=== PATIENT | female | born 1965 | race Caucasian/White ===

== ENCOUNTER 2016-08-18 21:35 | Emergency (ER) | payer OTHER ==
[~2016-08-18] VITALS: Ht 157.5 cm; Wt 59.9 kg
[2016-08-18 21:38] VITALS: Ht 157.5 cm; Wt 59.9 kg
[2016-08-18] MEDS ORDERED: LABETALOL HCL 20MG INJ IV ONE (23:30)
[2016-08-18] MEDS ORDERED: ASPI81TA3 PO (23:33)
[2016-08-18] MEDS ORDERED: LOSA1TAB21 PO (23:33)
[2016-08-18] MEDS ORDERED: IBUP200C11 PO (23:34)
[2016-08-19 00:13] LABS: ADD SCAN DIFF NO
[2016-08-19 00:15] LABS: BASOPHIL # 0.1 10^3/ul (0.0-0.1); BASOPHILS % 0.8 % (0.0-2.0); EOSINOPHILS # 0.1 10^3/ul (0.0-0.5); EOSINOPHILS % 1.3 % (0.0-7.0); HEMATOCRIT 39.4 % (37.0-47.0); LYMPHOCYTES # 3.2 10^3/ul (0.8-2.9); MEAN CORPUSCULAR HEMOGLOBIN 29.7 pg (29.0-33.0); MEAN PLATELET VOLUME 9.4 fl (7.4-10.4); MONOCYTE # 0.6 10^3/ul (0.3-0.9); MONOCYTES % 5.9 % (0.0-11.0); NEUTROPHIL # 6.5 10^3/ul (1.6-7.5); NEUTROPHILS % 61.7 % (39.0-77.0); PLATELET COUNT 378 10^3/UL (140-415); RED BLOOD COUNT 4.38 10^6/ul (4.20-5.40); RED CELL DISTRIBUTION WIDTH 12.4 % (11.5-14.5); WHITE BLOOD COUNT 10.6 10^3/ul (4.8-10.8)
[2016-08-19 00:25] LABS: INR 0.97; PROTIME 12.9 Sec (12.2-14.2)
[2016-08-19 00:26] LABS: PARTIAL THROMBOPLASTIN TIME 29.6 Sec (25.0-35.0)
[2016-08-19 00:28] LABS: ALANINE AMINOTRANSFERASE 36 IU/L (13-69); ALBUMIN 4.8 g/dl (3.3-4.9); ALBUMIN/GLOBULIN RATIO 1.04; ALKALINE PHOSPHATASE 118 IU/L (42-121); ANION GAP 15 (8-16); ASPARTATE AMINO TRANSFERASE 35 IU/L (15-46); BILIRUBIN,INDIRECT 0.6 mg/dl (0-1.1); BILIRUBIN,TOTAL 0.6 mg/dl (0.2-1.3); BLOOD UREA NITROGEN 13 mg/dl (7-20); CALCIUM 9.9 mg/dl (8.4-10.2); CARBON DIOXIDE 26 mmol/L (21-31); CHLORIDE 106 mmol/L (97-110); CREATININE 0.73 mg/dl (0.44-1.00); GLUCOSE 113 mg/dl (70-220); POTASSIUM 4.1 mmol/L (3.5-5.1); SODIUM 143 mmol/L (135-144); TOTAL PROTEIN 9.4 g/dl (6.1-8.1)
[2016-08-19 00:40] LABS: B-TYPE NATRIURETIC PEPTIDE 47 PG/ML (0-125)
--- NOTE | 2016-08-19 00:48 | RADRPT ---
PROCEDURE: Portable chest x-ray. CLINICAL INDICATION: Chest pain. TECHNIQUE: Portable AP view of the chest. COMPARISON: None. FINDINGS: No pulmonary edema or conolidation is identified. The cardiac silhouette is magnified. No pleural effusion is seen. There is no pneumothorax. IMPRESSION: 1. No evidence of acute cardiopulmonary disease. RPTAT: HTAR .Jim Bonilla MD, MD Date Time Electronically viewed and signed by .Jim Bonilla MD, on 08/19/2016 00:47 .R/
[2016-08-19 01:00] LABS: TROPONIN-I < 0.012 ng/ml (0.00-0.12)
--- NOTE | 2016-08-19 01:29 | ERD ---
ER Documentation Chief Complaint Date/Time DATE: 08/19/16 TIME: 01:28 Chief Complaint DIZZINESS SINCE AM. BP HIGH AT HOME. DENIES CAMPBELL +SLIGHT CP DENIES SOB HPI This is a very pleasant 50-year-old female dizziness since this morning. She noted her blood pressure was high at home. Denies any headache. She had slight chest pain. No shortness of breath. No nausea no vomiting no fevers no chills. No other current complaints. ROS All systems reviewed and are negative except as per history of present illness. Medications Home Meds Reported Medications Ibuprofen* (Advil*) 200 Mg Capsule, 400 MG PO Q6H Y for PAIN, CAP 08/18/16 Aspirin* (Aspirin* Chew) 81 Mg Tab.chew, 81 MG PO DAILY, TAB.CHEW 08/18/16 Losartan-Hydrochlorothiazide (Losartan-HCTZ) 100-12.5 Mg Tab, 1 TAB PO DAILY, TAB 08/18/16 Allergies Allergies: Coded Allergies: No Known Allergy (Unverified , 08/18/16) PMhx/Soc History of Surgery: Yes ( ) Anesthesia Reaction: No Hx Neurological Disorder: No Hx Respiratory Disorders: Yes (ASTHMA) Hx Cardiac Disorders: Yes (HTN) Hx Psychiatric Problems: No Hx Miscellaneous Medical Probl: No Hx Alcohol Use: No Hx Substance Use: No Hx Tobacco Use: No Smoking Status: Never smoker Physical Exam Vitals Vital Signs Date Time Temp Pulse Resp B/P Pulse Ox O2 Delivery O2 Flow Rate FiO2 08/19/16 00:10 82 21 141/88 99 Room Air 08/18/16 21:38 97.9 79 20 176/88 99 Physical Exam Const: [] Head: Atraumatic Eyes: Normal Conjunctiva ENT: Normal External Ears, Nose and Mouth. Neck: Full range of motion..~ No meningismus. Resp: Clear to auscultation bilaterally Cardio: Regular rate and rhythm, no murmurs Abd: Soft, non tender, non distended. Normal bowel sounds Skin: No petechiae or rashes Back: No midline or flank tenderness Ext: No cyanosis, or edema Neur: Awake and alert Psych: Normal Mood and Affect Result Diagram: 08/18/16 7296 08/18/16 5119 Results 24 hrs Laboratory Tests Test 08/18/16 23:38 White Blood Count 10.610^3/ul Red Blood Count 4.3810^6/ul Hemoglobin 13.0g/dl Hematocrit 39.4% Mean Corpuscular Volume 90.0fl Mean Corpuscular Hemoglobin 29.7pg Mean Corpuscular Hemoglobin Concent 33.0g/dl Red Cell Distribution Width 12.4% Platelet Count 10180^3/UL Mean Platelet Volume 9.4fl Neutrophils % 61.7% Lymphocytes % 30.0% Monocytes % 5.9% Eosinophils % 1.3% Basophils % 0.8% Nucleated Red Blood Cells % 0.0/100WBC Neutrophils # 6.510^3/ul Lymphocytes # 3.210^3/ul Monocytes # 0.610^3/ul Eosinophils # 0.110^3/ul Basophils # 0.110^3/ul Nucleated Red Blood Cells # 0.010^3/ul Prothrombin Time 12.9Sec Prothrombin Time Ratio 1.0 INR International Normalized Ratio 0.97 Activated Partial Thromboplast Time 29.6Sec Sodium Level 143mmol/L Potassium Level 4.1mmol/L Chloride Level 106mmol/L Carbon Dioxide Level 26mmol/L Anion Gap 15 Blood Urea Nitrogen 13mg/dl Creatinine 0.73mg/dl Glucose Level 113mg/dl Calcium Level 9.9mg/dl Total Bilirubin 0.6mg/dl Direct Bilirubin 0.00mg/dl Indirect Bilirubin 0.6mg/dl Aspartate Amino Transf (AST/SGOT) 35IU/L Alanine Aminotransferase (ALT/SGPT) 36IU/L Alkaline Phosphatase 118IU/L Troponin I < 0.012ng/ml B-Type Natriuretic Peptide 47PG/ML Total Protein 9.4g/dl Albumin 4.8g/dl Globulin 4.60g/dl Albumin/Globulin Ratio 1.04 Current Medications Medications (Trade) Dose Ordered Sig/Antonella Route PRN Reason Start Time Stop Time Status Last Admin Dose Admin Labetalol HCl (Labetalol) 10 mg ONCE ONCE IV 08/18/16 23:30 08/18/16 23:31 DC 08/18/16 23:28 Procedures/MDM EKG: Rate/Rhythm: Normal Sinus Rhythm QRS, ST, T-waves: No changes consistent w/ acute ischemia Impression: No evidence of ischemia or arrhytmia Chest X-ray 1V Interpreted by me: Soft Tissue: No acute abnormalities Bones: No acute abnormalities Mediastinum/Cardiac Silhouette/Lungs: [No acute abnormalities] Patient's thoracic symptoms have stabilized while in the department and are stable for outpatient follow up. Exam and work up not consistent w/ ischemia, arrhythmia, PE or dissection. Patient's blood pressure was elevated (>120/80) but appears stable without evidence of hypertension emergency or urgency. The patient was counseled about the risks of hypertension and urged to pursue outpatient monitoring and therapy within a week with their primary care physician. Departure Diagnosis: Primary Impression: Hypertension Hypertension type: essential hypertension Qualified Code: I10 - Essential hypertension Condition: Stable ANTON RUANO August 19, 2016 01:29
[2016-08-19 01:47] VITALS: BP 123/81; PULSE 77; RESP 18; TEMP 98
== END 2016-08-19 01:48 | disposition home or self-care (01) ==
LOC: E/R 21:35
DX: I10 Essential (primary) hypertension (principal); R40.2252 Coma scale, best verbal response, oriented, at arrival to emergency department; J45.909 Unspecified asthma, uncomplicated; R07.9 Chest pain, unspecified; R40.2142 Coma scale, eyes open, spontaneous, at arrival to emergency department; R40.2362 Coma scale, best motor response, obeys commands, at arrival to emergency department; Z79.82 Long term (current) use of aspirin
CPT/HCPCS: 36415; 71010; 80053; 83880; 84484; 85025; 85610; 85730; 93005; 96374